=== PATIENT | female | born 1960 | race Caucasian/White ===

== ENCOUNTER 2016-05-12 11:13 | Outpatient (CLI) | payer OTHER ==
[2014-12-06 08:19] VITALS: BP 153/87
--- NOTE | 2016-05-12 16:54 | Diagnostic Imaging Report ---
[facility] [id number] [facility].[address] 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 Vertebral body height and intervertebral disc spaces are preserved Multilevel degenerative changes are seen throughout the cervical spine with presence of osteophytes No prevertebral swelling Impression: No evidence of acute fracture or dislocation of the cervical spine Degenerative changes at multiple levels No prevertebral swelling Electronically signed on May 12, 2016 3:29:41 PM FLIGHT TEST SHOP MECHANIC by: Autumn JURADO
== END 2016-05-12 11:14 ==
LOC: RAD 11:13
PROVIDERS: ATTEND Nurse Practitioner Family
DX: M54.2 Cervicalgia (principal)
CPT/HCPCS: 72040

== ENCOUNTER 2016-11-10 15:48 | Outpatient (CLI) | payer OTHER ==
[2014-12-06 08:19] VITALS: BP 153/87
[2016-11-10 16:05] LABS: BASOPHILS % 0.8 (0.0-1.5); EOSINOPHILS % 1.7 % (0.0-6.8); MEAN CORPUSCULAR VOLUME 103.1 fl (80.0-100.0); MONOCYTES % 7.1 % (0.0-11.0); NEUTROPHILS # 2.8 # k/uL (1.4-7.7)
[2016-11-10 16:06] LABS: APPEARANCE,URINE Clear (CLEAR); COLOR,URINE Yellow (YELLOW); OCCULT BLOOD,URINE Trace-lysed (NEGATIVE); PH URINE 6.5 (5.0 - 8.0); UROBILINOGEN URINE 0.2 Eu (0.2-1.0)
[2016-11-10 16:32] LABS: eGFR (African) > 60; eGFR (Non-African) > 60
== END 2016-11-10 15:50 ==
LOC: LAB 15:48
PROVIDERS: ATTEND Podiatrist
DX: M79.671 Pain in right foot (principal); M70.871 Other soft tissue disorders related to use, overuse and pressure, right ankle and foot
CPT/HCPCS: 36415; 80053; 81002; 85025; 85651